=== PATIENT | female | born 2000 | race Caucasian/White ===

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

== ENCOUNTER 2022-01-01 15:58 | Emergency (ER) | payer OTHER, SELFPAY ==
[2022-01-01 16:12] VITALS: BP 158/91; PULSE 85; RESP 18; TEMP 37.1; O2SAT 100
--- NOTE | 2022-01-01 16:31 | ED.SKABFB ---
HPI - Skin/Abscess/Foreign Bdy General Chief complaint: Skin/Abscess/Foreign Body <Rabia Castle PA-C - Last Filed: 01/01/22 19:05> Stated complaint: spider bite <Rabia Castle PA-C - Last Filed: 01/01/22 19:05> Time Seen by Provider: 01/01/22 16:11 <Rabia Castle PA-C - Last Filed: 01/01/22 19:05> Source: patient <Rabia Castle PA-C - Last Filed: 01/01/22 19:05> Mode of arrival: ambulatory <Rabia Castle PA-C - Last Filed: 01/01/22 19:05> Limitations: no limitations <Rabia Castle PA-C - Last Filed: 01/01/22 19:05> History of Present Illness HPI narrative: This is a 21 year old female that presents to the ER for an area of redness and swelling to the left forearm. Reports drainage from the area. Denies fevers. <Rabia Castle PA-C - Last Filed: 01/01/22 19:05> Related Data Home medications: Home Medications Medication Instructions Recorded Confirmed omeprazole 10/23/21 10/23/21 <Rabia Castle PA-C - Last Filed: 01/01/22 19:05> Allergies/Adverse reactions: Allergies Allergy/AdvReac Type Severity Reaction Status Date / Time Penicillins Allergy Swelling Verified 10/23/21 19:06 <SUSSY Dixon Last Filed: 01/01/22 19:05> Review of Systems Review of Systems: CONSTITUTIONAL: Denies fever SKIN: Reports redness and swelling <Rabia Castle PA-C - Last Filed: 01/01/22 19:05> All systems reviewed & are unremarkable except as noted in HPI and below <Rabia Castle PA-C - Last Filed: 01/01/22 19:05> PMFSH Past Medical History Medical History: Medical History (Updated 01/01/22 @ 19:03 by Rabia Castle PA-C) Patient denies significant medical history <Rabia Castle PA-C - Last Filed: 01/01/22 19:05> Social History Social History: Social History (Updated 10/23/21 @ 21:37 by Bear Mcdonald MD) Smoking status: Never smoker Alcohol intake: never Substance use: never <Rabia Castle PA-C - Last Filed: 01/01/22 19:05> Exam Narrative: GENERAL: Well-appearing, well-nourished, and in no acute distress. HEAD: Normocephalic, atraumatic. EYES: EOMI. EXTREMITIES: Normal range of motion. 2cm area of erythema and induration to the left forearm. No active drainage. No lymphangitic streaking SKIN: Warm, dry, no rash. NEURO: No focal deficits. Alert and oriented x3. PSYCH: Normal mood and affect <Rabia Castle PA-C - Last Filed: 01/01/22 19:05> Course EXECUTIVE OFFICE MANAGER/PA Physician Supervision I did not see this patient nor was the care plan discussed with me. I was available for evaluation and consultation, I agree with the documentation <Bear Mcdonald MD - Last Filed: 01/01/22 19:18> Vital Signs Vital signs: Vital Signs Temperature 37.1 C 01/01/22 16:12 Pulse Rate 85 01/01/22 16:12 Respiratory Rate 18 01/01/22 16:12 Blood Pressure 158/91 H 01/01/22 16:12 Pulse Oximetry 100 01/01/22 16:12 Temperature 37.1 C 01/01/22 16:12 Pulse Rate 85 01/01/22 16:12 Respiratory Rate 18 01/01/22 16:12 Blood Pressure 158/91 H 01/01/22 16:12 Pulse Oximetry 100 01/01/22 16:12 <Rabia Castle PA-C - Last Filed: 01/01/22 19:05> Vital Signs Temperature 37.1 C 01/01/22 16:12 Pulse Rate 85 01/01/22 16:12 Respiratory Rate 18 01/01/22 16:12 Blood Pressure 158/91 H 01/01/22 16:12 Pulse Oximetry 100 01/01/22 16:12 Temperature 37.1 C 01/01/22 16:12 Pulse Rate 85 01/01/22 16:12 Respiratory Rate 18 01/01/22 16:12 Blood Pressure 158/91 H 01/01/22 16:12 Pulse Oximetry 100 01/01/22 16:12 <Bear Mcdonald MD - Last Filed: 01/01/22 19:18> Procedures Abscess I/D upper extremity: Date of Incision: 01/01/22 <Rabia Castle PA-C - Last Filed: 01/01/22 19:05> Side (if applicable): left <Rabia Castle PA-C - Last Filed: 01/01/22 19:05> Local Anesthetic: lidocaine 1% and with epi <Rabia Banerjee
[2022-01-01 19:18] VITALS: BP 134/87; PULSE 80; RESP 15; O2SAT 99
== END 2022-01-01 19:20 | disposition home or self-care (01) ==
PROVIDERS: Emergency Provider Emergency Medicine
DX: L02.414 Cutaneous abscess of left upper limb (principal)
CPT/HCPCS: 10160; 81025; 99284

== ENCOUNTER 2022-02-12 16:01 | Emergency (ER) | payer OTHER, SELFPAY ==
--- NOTE | ~2022-02-12 | XR_ITS ---
XR chest 2V DATE: 02/12/2022 17:26 INDICATION: Midsternal chest pain, shortness of breath, lightheadedness and dizziness today. TECHNIQUE: AP and lateral views COMPARISON: 10/23/2021 PA chest FINDINGS: Normal heart size. No hilar or mediastinal enlargement. No pulmonary infiltrate or consolid ation, pleural effusion or pulmonary vascular congestion or pneumothorax. IMPRESSION: No active cardiopulmonary disease Reviewed, dictated and finalized at location A.
[2022-02-12 16:04] VITALS: BP 114/72; PULSE 83; RESP 20; TEMP 36.7; O2SAT 100
--- NOTE | 2022-02-12 16:12 | ECG_ITS ---
Measurements Intervals [place] Rate: 77 P: 42 FL: 152 QRS: 57 QRSD: 90 T: 18 QT: 374 QTc: 424 Interpretive Statements SINUS RHYTHM NORMAL ECG COMPARED TO ECG 10/23/2021 19:23:01 NO SIGNIFICANT CHANGES Electronically Signed On 02-13-2022 12:29:17 CDT by Sean Interiano M.D.
--- NOTE | 2022-02-12 16:53 | PC.NURSE ---
pt. glucose was 95 at 1652
[2022-02-12 16:55] LABS: Glucose Point of Care 95 mg/dl (65-105)
--- NOTE | 2022-02-12 17:02 | ED.GENADULT ---
HPI - General Adult General Chief complaint: Unspecified Stated complaint: POSSIBLE SEIZURE Time Seen by Provider: 02/12/22 16:05 Source: patient Mode of arrival: EMS Limitations: no limitations History of Present Illness HPI narrative: 21-year-old female presents today via EMS with concerns for syncopal episode. Patient states she noticed some dizziness today noticed some chest pain that went down her arm. Patient seen her in the past for similar symptoms. Per patient after her chest pain is when she had the syncopal episode at work. Per her coworkers she was in and out of consciousness for 1 to 2 minutes and then completely lost consciousness for 2 minutes. Coworker states that they were unable to arouse her with a sternal rub, she was dry heaving, no abnormal limb movement. No urinary incontinence, no fecal incontinence, no noted seizure activity. By the time EMS arrived patient was awake and alert. Patient does have a medical history of seizures but has not taken meds for years. Related Data Home Medications Medication Instructions Recorded Confirmed omeprazole 10/23/21 10/23/21 Allergies Allergy/AdvReac Type Severity Reaction Status Date / Time Penicillins Allergy Swelling Verified 02/12/22 16:10 sulfamethoxazole Allergy Swelling Verified 02/12/22 16:10 [From Bactrim] trimethoprim [From Bactrim] Allergy Swelling Verified 02/12/22 16:10 Review of Systems Review of Systems: CONSTITUTIONAL: Denies fever, chills, or sweats. EYES: Denies visual changes, redness, or discharge. ENT: Denies rhinorrhea, congestion, sore throat, or otalgia. CARDIOVASCULAR: Sharp chest pain with radiation down the arm prior to syncopal episode. Denies palpitations, or edema. RESPIRATORY: Denies cough or dyspnea. GASTROINTESTINAL: Denies abdominal pain, nausea, vomiting, or diarrhea. GENITOURINARY: Denies dysuria or hematuria. SKIN: Denies rash or itching. MUSCULOSKELETAL: Denies back pain, joint pain, or myalgia. NEUROLOGIC: Dizziness and LOC. Denies numbness or weakness. PSYCHIATRIC: Denies anxiety or depression. [facility] Past Medical History Medical History Patient denies significant medical history Social History Social History Smoking status: Never smoker Alcohol intake: never Substance use: never Exam Narrative: GENERAL: Well-appearing, well-nourished, and in no acute distress. HEAD: Normocephalic, atraumatic. EYES: PERRLA and EOMI. ENT: Nares clear, no rhinorrhea or epistaxis. Mucous membranes moist. Oropharynx without tonsillar hypertrophy exudate or other lesions. Bilateral TMs pearly gottlieb nonbulging NECK: Supple. No adenopathy or masses. No carotid bruits or JVD CHEST: Clear to auscultation. No respiratory distress. No wheezes rales or rhonchi. Chest pain with palpation. HEART: Regular rate and rhythm. No murmur heard. Normal peripheral pulses. ABDOMEN: Soft, nontender, nondistended, normal active bowel sounds. EXTREMITIES: Normal range of motion. No edema. SKIN: Warm, dry, no rash. NEURO: No focal deficits. Alert and oriented x3. PSYCH: Flat affect. Normal mood. Course Course Emergency Course: PERC Rule for Pulmonary Embolism from [email or web address] on 02/12/2022 All calculations should be rechecked by clinician prior to use RESULT SUMMARY: 0 criteria No need for further workup, as <2% chance of PE. If no criteria are positive and clinician?s pre-test probability is <15%, PERC Rule criteria are satisfied. INPUTS: Age ?50 ?> 0 = No HR ?100 ?> 0 = No O? sat on room air ?> 0 = No Unilateral leg swelling ?> 0 = No Hemoptysis ?> 0 = No Recent surgery or trauma ?> 0 = No Prior PE or DVT ?> 0 = No Hormone use ?> 0 = No Patient currently without dizziness no chest pain. Feeling better and ready for discharge. Will finish IVF prior to discharge. Vital Signs Vital signs: Vital Signs
[2022-02-12 17:09] LABS: Basophils Absolute Auto 0.1 K/mm3 (0.0-0.1); Basophils Percent Auto 0.5 % (0.2-1.2); Eosinophils Absolute Auto 0.1 K/mm3 (0-0.3); Eosinophils Percent Auto 0.7 % (0-4.4); Hemoglobin 12.7 g/dL (12.0-15.0); Immature Granulocyte Absolute 0.05 K/mm3 (0.00-0.031); Immature Granulocyte Percent A 0.5 % (0-0.5); Lymphocytes Absolute Auto 2.34 K/mm3 (0.9-3.2); Lymphocytes Percent Auto 21.1 % (18.3-44.2); Mean Corpuscular HGB Conc 31.8 g/dl (32-36); Mean Corpuscular Hemoglobin 28.7 pg (26-34); Mean Corpuscular Volume 90.3 fl (80-100); Mean Platelet Volume 9.8 fl (7.4-10.4); Monocytes Absolute Auto 0.7 K/mm3 (0.1-0.6); Monocytes Percent Auto 6.6 % (2.6-8.5); Neutrophils Absolute Auto 7.8 K/mm3 (1.3-6.7); Neutrophils Percent Auto 70.6 % (45.5-73.1); Platelet Count Result 268 k/mm3 (150-375); Red Blood Count 4.43 M/mm3 (4.2-5.4); Red Cell Distribution Width 13.7 % (11.5-14.5); White Blood Count 11.1 K/mm3 (4.5-10.0)
[2022-02-12] MEDS: SODIUM CHLORIDE 0.9% IV 1,000 ML 999 ML IV CONT (17:09)
[2022-02-12 17:15] LABS: Add Urine Microscopic? YES; Appearance Urine Cloudy (Clear); Bacteria Urine Trace /hpf; Bilirubin Urine Negative (Negative); Blood Urine Negative (Negative); Color Urine Yellow (Yellow); Glucose Urine UA Negative (Negative); Ketones Urine Negative (Negative); Leukocyte Esterase Ur Negative LEU/UL (Negative); Mucus Urine Rare /lpf; Nitrate Urine Negative (Negative); Protein Urine Negative (Negative); Specific Grav Ur 1.021 (1.001-1.035); Squamous Epithelial Cell Urine Moderate /hpf (Few); Urobilinogen Urine Negative mg/dL (<2.0); WBC Urine 0-3 /hpf
[2022-02-12 17:16] LABS: Alanine Aminotransferase 19 U/L (4-35); Albumin Level 4.2 g/dL (3.7-5.6); Alkaline Phosphatase 75 U/L (45-116); Anion Gap 5 mmol/L (8-16); Aspartate Amino Transferase 30 U/L (14-36); Bilirubin,Total 0.2 mg/dL (0.2-1.3); Blood Urea Nitrogen 11 mg/dL (8-21); Calcium 8.7 mg/dL (8.9-10.7); Carbon Dioxide 32 mmol/L (22-30); Chloride 103 mmol/L (98-107); Estimated CRCL calculation 183 ml/min; Estimated Glomerular Filt Rate > 60; Glucose 84 mg/dL (65-110); Potassium 3.7 mmol/L (3.4-5.0); Sodium 140 mmol/L (134-143)
[2022-02-12 17:28] LABS: Troponin I < 0.012 ng/mL (0.000-0.034)
[2022-02-12 17:41] VITALS: BP 118/62; PULSE 70
[2022-02-12 17:42] VITALS: BP 114/75; PULSE 77
[2022-02-12 17:43] VITALS: BP 127/76; PULSE 89
[2022-02-12 18:30] VITALS: BP 115/80; PULSE 72; RESP 20; O2SAT 100
== END 2022-02-12 18:40 | disposition home or self-care (01) ==
PROVIDERS: Emergency Provider Nurse Practitioner Family
DX: R55 Syncope and collapse (principal)
CPT/HCPCS: 36415; 71046; 80053; 81001; 81025; 82948; 84484; 85025; 93005; 96360; 99284; J7030

== ENCOUNTER 2022-02-14 13:59 | Emergency (ER) | payer OTHER, SELFPAY ==
[2022-02-14 14:21] VITALS: BP 137/82; PULSE 91; RESP 16; TEMP 36.6; O2SAT 100
--- NOTE | 2022-02-14 14:23 | PC.NURSE ---
pt amb in lobby with steady gait.
--- NOTE | 2022-02-14 15:27 | PC.NURSE ---
pt to intake desk stating I'm just gonna go to [place] . pt amb with steady gait out of building.
== END 2022-02-14 15:34 | disposition left against medical advice (07) ==
LOC: ANHED 15:31
DX: R42 Dizziness and giddiness (principal)
CPT/HCPCS: 99199

== ENCOUNTER 2022-06-11 21:06 | Emergency (ER) | payer MEDICAID, SELFPAY ==
[2022-06-11 21:08] VITALS: BP 128/81; PULSE 114; RESP 16; TEMP 36.3; O2SAT 100
--- NOTE | 2022-06-11 21:39 | PC.NURSE ---
heart tones found in left medial quadrant, 180 BPM.
--- NOTE | 2022-06-11 21:42 | ED.PREGNANCY ---
HPI - General Chief complaint: Vaginal Bleeding Stated complaint: 18 WEEKS / BLEEDING Time Seen by Provider: 06/11/22 21:22 History of Present Illness HPI Narrative: Patient is a 21-year-old G2, P0 female who is currently 19 weeks here for evaluation of vaginal spotting today and yesterday. Patient states that she has had 3 episodes of light pink spotting noted in her underwear. Today, she notes lower abdominal cramping which prompted her ED evaluation. She has not taken any medication for his pain. Denies lightheadedness, syncope, leg swelling. She follows at [facility] for her , has had an ultrasound that confirmed IUP. Related Data Home Medications Medication Instructions Recorded Confirmed No Home Medications 06/11/22 Allergies Allergy/AdvReac Type Severity Reaction Status Date / Time Penicillins Allergy Swelling Verified 06/11/22 21:06 sulfamethoxazole Allergy Swelling Verified 06/11/22 21:06 [From Bactrim] trimethoprim [From Bactrim] Allergy Swelling Verified 06/11/22 21:06 Review of Systems Review of Systems: Gen.: Denies fevers or chills Eyes: Denies eye pain or visual change ENT: Denies congestion Respiratory: Denies shortness of breath or cough CV: Denies chest pain or palpitations GI: Reports abdominal pain : Reports vaginal bleeding. Denies burning, urgency, frequency or hematuria Musculoskeletal: Denies back pain or muscle pain Neuro: Denies numbness, tingling, weakness or focal weakness Skin: Denies rash Except as documented, all other systems reviewed and negative PMFSH Past Medical History Medical History Patient denies significant medical history Social History Social History Smoking status: Never smoker Alcohol intake: never Substance use: never Course Course Emergency Course: Bedside POC US with positive movement, heart rate detected on doppler US as well Vital Signs Vital signs: Vital Signs Temperature 97.3 F L 06/11/22 21:08 Pulse Rate 114 H 06/11/22 21:08 Respiratory Rate 16 06/11/22 21:08 Blood Pressure 128/81 06/11/22 21:08 Pulse Oximetry 100 06/11/22 21:08 Temperature 97.3 F L 06/11/22 21:08 Pulse Rate 100 06/11/22 21:49 Respiratory Rate 16 06/11/22 21:08 Blood Pressure 144/81 H 06/11/22 21:49 Pulse Oximetry 100 06/11/22 21:08 MDM - OB/Uterine Contractions MDM Narrative Medical decision making narrative: 21-year-old female who is currently 19 weeks here for evaluation of vaginal spotting for the past 2 days with some lower abdominal cramping. Patient had detectable Doppler heart tones, bedside ultrasound with positive movement. [place] [id number]. She is O+, no need to give RhoGAM. Prior to obtaining pelvic exam, patient informed me that she contacted her OB at [facility] and would like to go there. Patient insisting that IV removed so she can go immediately to [facility]. Discussed that I was planning on contacting her OB regardless, encouraged her to stay for pelvic exam and complete examination, but patient adamant that she wants to leave and go to [facility]. She signed AMA paperwork. Lab Data Result diagrams: 06/11/22 21:41 Labs: Lab Results 06/11/22 06/11/22 06/11/22 Range/Units 21:41 21:41 21:41 WBC 13.2 H (4.5-10.0) K/mm3 RBC 3.97 L (4.2-5.4) M/mm3 Hgb 11.3 L (12.0-15.0) g/dL Hct 34.4 L (37.0-47.0) % MCV 86.6 (80-100) fl MCH 28.5 (26-34) pg MCHC 32.8 (32-36) g/dl RDW 13.1 (11.5-14.5) % Plt Count 235 (150-375) k/mm3 MPV 10.3 (7.4-10.4) fl Immature Gran % (Auto) 0.8 H (0-0.5) % Neut % (Auto) 78.2 H (45.5-73.1) % Lymph % (Auto) 14.9 L (18.3-44.2) % [place] % (Auto) 5.1 (2.6-8.5) % Eos % (Auto) 0.8 (0-4.4) % Baso % (A
[2022-06-11 21:46] VITALS: BP 123/59; PULSE 82
[2022-06-11 21:47] VITALS: BP 132/79; PULSE 97
[2022-06-11 21:49] VITALS: BP 144/81; PULSE 100
[2022-06-11 21:51] LABS: Basophils Percent Auto 0.2 % (0.2-1.2); Eosinophils Absolute Auto 0.1 K/mm3 (0-0.3); Eosinophils Percent Auto 0.8 % (0-4.4); Hematocrit 34.4 % (37.0-47.0); Hemoglobin 11.3 g/dL (12.0-15.0); Immature Granulocyte Percent A 0.8 % (0-0.5); Lymphocytes Absolute Auto 1.97 K/mm3 (0.9-3.2); Lymphocytes Percent Auto 14.9 % (18.3-44.2); Mean Corpuscular HGB Conc 32.8 g/dl (32-36); Mean Corpuscular Hemoglobin 28.5 pg (26-34); Mean Corpuscular Volume 86.6 fl (80-100); Mean Platelet Volume 10.3 fl (7.4-10.4); Monocytes Absolute Auto 0.7 K/mm3 (0.1-0.6); Monocytes Percent Auto 5.1 % (2.6-8.5); Neutrophils Absolute Auto 10.3 K/mm3 (1.3-6.7); Neutrophils Percent Auto 78.2 % (45.5-73.1); Platelet Count Result 235 k/mm3 (150-375); Red Blood Count 3.97 M/mm3 (4.2-5.4); Red Cell Distribution Width 13.1 % (11.5-14.5); White Blood Count 13.2 K/mm3 (4.5-10.0)
[2022-06-11] MEDS: ACETAMINOPHEN 325 MG TABLET 650 MG PO (21:59)
== END 2022-06-11 23:15 | disposition left against medical advice (07) ==
PROVIDERS: Emergency Provider Emergency Medicine
DX: O20.9 Hemorrhage in early pregnancy, unspecified (principal); Z3A.19 19 weeks gestation of pregnancy
CPT/HCPCS: 36415; 84702; 85025; 85461; 99284; A9270

== ENCOUNTER 2025-09-15 17:44 | Outpatient (CLI) | payer OTHER, SELFPAY ==
[2025-09-15 18:07] VITALS: BP 128/72; PULSE 100
[2025-09-15 18:11] VITALS: BMI 56.1
--- NOTE | 2025-09-15 18:11 | PC.NURSE ---
Dr Kemp notified of fall, gestational age of 18 weeks. Doppler of FHT's of 160's. Ok to dc home with precautions. Patient feels reassured and sees Dr Kemp next week.
--- OUTSIDE RECORDS SUMMARY | 2025-09-15 19:11 | XMS_ITS | Clinical Summary ---
Author Organization [facility] Address [address] [place] [address] Phone Care Team Providers Care Hand Edger Name Role Phone Donnie Tejeda Primary Care Provider [phone] Ishaan Leija MD Unavailable [phone] Allergies Active Allergy Reactions Criticality Noted Date Comments Sulfamethoxazole-Trimethoprim Anaphylaxis 07/30 Penicillins Rash 10/12/2017 Promethazine Other (see Comments) High 03/27/2022 Sulfamethoxazole Other (see Comments) Trimethoprim Other (see Comments) 11/13/2024 Medications Adderall 20 MG Tablet Take 1 Tablet by mouth. 05/12/2025 Active ferrous sulfate 325 (65 Fe) MG Tablet Take 1 Tablet by mouth daily. 30 Tablet 2 06/17/2025 Active Active Problems Problem Noted Date Diagnosed Date Iron deficiency anemia due to chronic blood loss 05/19/2025 Iron deficiency anemia, unspecified 05/19/2025 Encounters Date Type Department Care Team Description 06/17/2025 Travel 06/16/2025 Telephone [facility] [address] [address] Ishaan Leija MD canopy call/iron infusion question from Last 3 Months Social History Tobacco Use Types Packs/Day Years Used Date Smoking Tobacco: Never Smokeless Tobacco: Never Tobacco Cessation:Counseling Given: Not Answered Alcohol Use Standard Drinks/Week Comments Yes 0 (1 standard drink = 0.6 oz pur e alcohol) once in a while Comments Unknown Sex and Gender Information Value Date Recorded Sex Assigned at Not on file Legal Sex Female 1:32 PM [employer] Gender Identity Female 04/08/2025 12:22 AM CDT Sexual Orientation Straight 04/08/2025 12 :22 AM CDT Last Filed Vital Signs Vital Sign Reading Time Taken Comments Blood Pressure 122/78 05/19/2025 2:24 PM CDT Pulse 92 05/19/2025 2:24 PM CDT Temperature 36.7 C (98 F) 05/19/2025 2:24 PM CDT Respiratory Rate 20 05/19/2025 2:24 PM CDT Oxygen Saturation 99% 05/19/2025 2:24 PM CDT Inhaled Oxygen Concentration - - Weight 149.7 kg (330 lb 1.6 oz) 05/19/2025 2:24 PM CDT Height 165.1 cm (5' 5) 05/19/2025 2:24 PM CDT Body Mass Index 54.93 05/19/2025 2:24 PM CDT Plan of Treatment Health Maintenance Due Date Last Done Comments Meningococcal B Immunization (2 of 2 - Bexsero SCDM 2-dose series) 10/07/2021 04/06/2021 Pap Smear 2023 Influenza Immunization (#1) 2025 08/28/2016, 1 01/07/2006 SARS-COV-2 Immunization ( - season) 2025 Respiratory Syncytial Virus (RSV) Immunization (Adult) (1 - 1-dose 75+ series) 2077 Hepatitis B Immunization Completed 003, 02/24/2003, 2002 Pneumococcal Immunization Combined Aged Out 12/25/2004, 06/27/2003, 04/28/2003, Additional history exists No longer eligible based on patient's age to complete this topic Polio (IPV) Immunization Discontinued 007, 07/16/2004, 04/28/2003, Additional history exists Hepatitis A Immunization Discontinued 014, 2005, 12/25/2004 Hepatitis C Virus (HCV) Screening Completed 08/08/2017 Human Papillomavirus (HPV) Immunization Completed 08/15/2017, 09/15/2014, 07/12/2014 Meningococcal Immunization (ACWY) Completed 04/06/2021, 07/12/2014 DTaP/Tdap/Td Immunization Discontinued 2024, 09/05/2022, 07/12/2014, Additional history exists TdaP Immunization Completed 12/06/2024, , 07/12/2014 Varicella Immunization Discontinued , 01/10/2008, 01/02/2004 Measles Mumps Rubella (MMR) Immunization Discontinued 02/12/2025, 01/10/2008, 03/26/2004 Rotavirus Immunization Aged Out No lo nger eligible based on patient's age to complete this topic Insurance [address], [place] [id number] [address] [place] [address] [address] [place] [address] [facility] Care Teams Hand Edger Relationship Specialty Start Date End Date Donnie Tejeda [address] [address] PCP - General Family Medicine 04/07/25 Ishaan Leija MD [address] [place] [address] Consulting Physician Oncology 05/14/25
--- OUTSIDE RECORDS SUMMARY | 2025-09-15 19:12 | XMS_ITS | Clinical Summary ---
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 Recorded Do you feel stress - tense, restless, nervous, or anxious, or unable to sleep at night because your mind is troubled all the time - these days? Not at all 11/21/2024 Exercise Vital Sign Answer Date Recorde d On average, how many days pe r week do you engage in moderate to strenuous exercise (like a brisk walk)? 0 days 11/21/2024 On average, how many minutes do you engage in exercise at this level? 0 min 11/21/2024 Hunger Vital Sign Answer Date Recorded Within the past 12 months, y ou worried that your food would run out before you got the money to buy more. Never true 03/04/20 25 Within the past 12 months, t he food you bought just didn't last and you didn't have money to get more. Never true 03/04/2025 PRAPARE - Transportation Answer Date Re corded In the past 12 months, has l ack of transportation kept you from medical appointments or from getting medications? No 01/25 In the past 12 months, has l ack of transportation kept you from meetings, work, or from getting things needed for daily living? No 02/11/2025 Housing Stability Vital Sign Answer Arsh e Recorded In the last 12 months, was t here a time when you were not able to pay the mortgage or rent on time? No 11/05/2022 In the last 12 months, how many places have you lived? 1 11/05/2022 In the last 12 months, was t here a time when you did not have a steady place to sleep or slept in a correction (including now)? No 11/05/2022 [place] Depression Scale Answer Date Recorded [place] Depression Scale Total 13 04/03/2025 The thought of harming myself has occurred to me . Never 04/03/2025 PHQ-9 Answer Date Recorded PHQ-9 Total Score 0 11/27/2024 Housing Stability Vital Sign Answer Arsh e Recorded In the last 12 months, was t here a time when you were not able to pay the mortgage or rent on time? No 02/11/2025 In the past 12 months, how m any times have you moved where you were living? 0 02/11/2025 At any time in the past 12 m [facility], were you homeless or living in a correction (including now)? No 02/11/2025 Personal Safety Answer Date Recorded Have you ever been in or are you currently in a harmful physical or emotional relationship or is someone making you feel afraid or unsafe? Denies 08/11/2025 Education Answer Date Recorded What is the highest level of school you have completed or the highest degree you have received? High school graduate 06/21/2024 Estimated Date of Delivery Comme nts Yes 02/16/2026 Based on Ultraso und Sex and Gender Information Value Date Recorded Sex Assigned at Not on file Legal Sex Female 7:42 PM QA SOFTWARE TESTER Gender Identity Female 01/04/2025 4:15 AM QA SOFTWARE TESTER Sexual Orientation Straight 08/04/2022 2: 40 PM CDT Occupation Industry Job Start Date Job End Date unemployed Not on file Not on file Not on file Obstetrics History Para Term AB IAB SAB Ectopic Multiple Livin g Live Births 6 2 2 3 0 3 0 2 2 Date Outcome GA Total Labor Labor/2nd/3rd Weight Sex Type Anes PTL Adelita A1 A5 Name Clin 2016 SAB SAB 2020 SAB 2021 Term 38w 5d 0h 02m 0h 02m 2.68 kg (5 lb 14.5 oz) F C-Sec tion Epidur al N Livin g 6 9 SPRATL EY,GIR SARA Adorno , Breanna shah MD Complications:Failure to Pro alvarez in First Stage Delivery Location:[facility] Main C ampus ([facility] L AND D PROCEDURE) 06/202 3 SAB SAB 2024 Term 38w 1d 0h 01m 0h 01m 2.88 kg (6 lb 5.6 oz) F C-Sec tion Combin ed Spinal /Epidu ral N Livin g 7 8 Linusbethaniemichael erum bills, Paul Xavier MD Delivery Location:[facility] Main C ampus ([facility] L AND D PROCEDURE) Current Summary Episode Dates Number of Fetuses Estimated Date of Delivery 06/23/2025 - Present (09/15/2025) 02/16/2026 (set by Aparna Vega NP on 06/23/2025 based on Ultrasound on 06/23/2025) Dating Summary Based On AMANDA GA Diff Last Menstrual Period on 04/29/2025 (Approximate ) 02/03/2026 +1w6d Ultrasound on 06/23/2025 02/16/2026 Working GA:6w0d Vitals Pregravid Weight Height TWG (As of 09/15/2025) Pregrav id BMI 165.1 cm (5' 5) Date GA Fund Present FHR Mvmt BP Weight Edema Alb Glu Ket Dil/ Eff/Sta 5 6w0d Inpatient data not displayed here. See encounter summary. 5 13w0d Inpatient data not displayed here. See encounter summary. Notes Progress Notes - Hospital En counter - 06/23/2025 - GA:6w0d 06/23/2025 - 6w0d - Aparna Dowling, RN Pt is a 24yo @ 7.6 presents to the [facility] with c/o generalized weakness, dizziness, CP and generalized body. Body pain is currently 8/10, increases with movement. Pt states when she gets weak, she becomes dizzy, has CP, and see floaty things. Orthostatic: After lying 5 min: HR 88 BP 112/55 High Fowlers 1 min: HR 88 BP 137/80 High Fowlers 3 min: HR 91 BP 137/79 Pt reports she was told she had low iron, and was supposed to have an iron infusion, but when she arrived the Dr told her she could not have the infusion at this time. Last Filed Vital Signs Vital Sign Reading Time Taken Comments Blood Pressure 145/78 08/11/2025 3:30 PM CDT Pulse 113 08/11/2025 3:30 PM CDT Temperature 36.5 C (97.7 F) 08/11/2025 3:30 PM CDT Respiratory Rate 18 08/11/2025 3:30 PM CDT Oxygen Saturation 98% 08/11/2025 3:30 PM CDT Inhaled Oxygen Concentration - - Weight 153.3 kg (338 lb) 08/11/2025 3:30 PM CDT Height 165.1 cm (5' 5) 08/11/2025 3:30 PM CDT Body Mass Index 56.25 08/11/2025 3:30 PM CDT Plan of Treatment Upcoming Encounters Date Type Department Care Team (Late st Contact Info) Description 02/16/2026 Hospital Encounter [facility] [address] [place] [address] Paul Villalba MD [address] [facility] [phone] [place] [address] Health Maintenance Due Date Last Done Comments Meningococcal B Vaccine (2 o f 2 - Bexsero SCDM 2-dose series) 10/07/2021 04/06/2021 Cervical Cancer Screening 02/21/2025 02/22/2024 Regular Well Visit/Exam 18-64 02/21/2025 02/22/2024 Influenza Vaccine (#1) 2025 6, 09/08/2009, 09/29/2008, Additional history exists Depression Screening 04/03/2026 04/03/2025, 11/21/2024, 11/21/2024, Additional history exists Chlamydia and Gonorrhea (GC/ CT) Screening 07/06/2026 07/06/2025, 07/08/2024, 06/21/2024, Additional history exists DTaP/Tdap/Td Vaccine (9 - Td or Tdap) 12/06/2034 12/06/2024, 09/05/2022, 07/12/2014, Additional history exists Hepatitis B Screening Completed 10/03/2003 , 02/24/2003, 2002 Pneumococcal vaccine <65 Completed 005, 06/27/2003, 04/28/2003, Additional history exists HPV Vaccines Completed 08/15/2017, 08/28, 07/12/2014 Hepatitis C Screening Completed 06/21/2024, 022 Varicella Vaccines Completed 02/11/2025, 0 01/10/2008, 01/02/2004 Procedures Procedure Name Priority Date/Time Associated Diagnosis Comments POCT GLUCOSE DEVICE Routine 08/11/2025 5 :07 PM CDT ECG 12-LEAD STAT 08/11/2025 4:39 PM CDT POCT URINALYSIS (CLINITEK) Routine 08/11/2025 3:58 PM CDT POCT URINALYSIS (CLINITEK) Routine 08/11/2025 3:53 PM CDT URINALYSIS, MICROSCOPIC ONLY STAT 07/06/2025 6:37 PM CDT HCG, URINE, QUALITATIVE STAT 07/06/2025 6:37 PM CDT VAGINITIS PANEL Routine 07/06/2025 6:37 PM CDT N. GONORRHOEAE/C. TRACHOMATIS AMPLIFICATION STAT 07/06/2025 6:37 PM CDT URINALYSIS AND REFLEX TO MICROSCOPIC AND CULTURE STAT 07/06/2025 6:37 PM CDT POCT URINALYSIS (CLINITEK) Routine 06/23/2025 6:33 PM CDT POCT HEMOGLOBIN Routine 06/23/2025 5:55 PM CDT POCT GLUCOSE DEVICE Routine 06/23/2025 5 :54 PM CDT POCT HCG, URINE Routine 06/23/2025 4:35 PM CDT HEPATITIS C ANTIBODY Routine 06/21/2024 9:08 AM CDT care in first trimester PAP ONLY Routine 02/22/2024 8:43 AM CDT Well woman exam from Last 3 Months or Most Recently Relevant to Health Maintenance Results * POCT glucose (08/11/2025 5:07 PM CDT) Glucose, POC 106 70 - 199 mg/dL Blood 08/11/2025 5:07 PM CDT 08/11/2025 5:07 PM CDT us Paul Villalba MD LAB POCT ORDERABLES - DEVIC E Final Result Performing Organization Address City/State/[facility] Co de Phone Number [facility] Department [place] [address] * ECG 12 lead (08/11/2025 4:39 PM CDT) Ventricular Rate EKG/Min 97 BPM [facility] Atrial Rate 97 BPM [facility] OK-Interval (MSEC) 132 ms [facility] QRS-Interval (MSEC) 84 ms [facility] QT-Interval (MSEC) 352 ms [facility] QTc 447 ms [facility] P [place] 44 degrees [facility] R [place] 39 degrees [facility] T [place] 11 degrees [facility] Diagnosis Normal sinus rhythm Normal ECG When compared with ECG of 06-NOV-2024 12:11, QRS axis Shifted left Confirmed by DYLAN BAEZ M.D ([id number]) on 08/12/2025 10:28:51 AM [facility] 08/11/2025 4:39 PM CDT 08/12/2025 10:28 AM CDT us Aparna Gonzales NP ECG ORDERABLES Fi nal Result Performing Organization Address City/[facility] de Phone Number [facility] * POCT urinalysis (Clinitek) (08/11/2025 3:58 PM CDT) Color, ur, POC Yellow Yellow Clarity, UA, POC Clear Clear [facility] Glucose, ur, POC Negative Negative [facility] Bilirubin, ur, POC Negative Negative [facility] Ketones, ur, POC Negative Negative [facility] Specific gravity, ur, POC 1.025 1.010 - 1.025 [facility] Blood, ur, POC Negative Negative [facility] pH, ur, POC 6.5 [facility] Comment: Interpretive Data Urine pH is affected by diet, medications, systemic acid-base disturbances, and renal tubular function. pH may affect urinary stone formation. For example, urine pH below 6.0 may help reduce the tendency for calcium phosphate stones and pH greater than 6.0 may reduce the tendency for uric acid stone formation. Source: [employer] Last Revised Date: 12-07-2017 Protein, ur, POC Negative Negative [facility] Urobilinogen, ur, POC 0.2 mg/dL mg/dL [facility] Nitrites, ur, POC Negative Negative [facility] Leukocyte esterase, ur, POC Negative Negative [facility] Urine 08/11/2025 3:58 PM CDT 08/11/2025 3:58 PM CDT us Paul Villalba MD LAB POCT ORDERABLES - DEVIC E Final Result Performing Organization Address [facility] Co de Phone Number [facility] One [facility] Department [place] [address] * (ABNORMAL) POCT urinalysis (Clinitek) (08/11/2025 3:53 PM CDT) Color, ur, POC Yellow Yellow Clarity, UA, POC Clear Clear [facility] Glucose, ur, POC Negative Negative [facility] Bilirubin, ur, POC Negative Negative [facility] Ketones, ur, POC Negative Negative [facility] Specific gravity, ur, POC >=1.030(A) 1.010 - 1.025 [facility] Blood, ur, POC Negative Negative [facility] pH, ur, POC 6.5 [facility] Comment: Interpretive Data Urine pH is affected by diet, medications, systemic acid-base disturbances, and renal tubular function. pH may affect urinary stone formation. For example, urine pH below 6.0 may help reduce the tendency for calcium phosphate stones and pH greater than 6.0 may reduce the tendency for uric acid stone formation. Source: [facility] [employer]. Last Revised Date: 12-07-2017 Protein, ur, POC Negative Negative [facility] Urobilinogen, ur, POC 0.2 mg/dL mg/dL [facility] Nitrites, ur, POC Negative Negative [facility] Leukocyte esterase, ur, POC Negative Negative [facility] Urine 08/11/2025 3:53 PM CDT 08/11/2025 3:53 PM CDT Paul Villalba MD LAB POCT ORDERABLES - DEVIC E Final Result Performing Organization Address City/State/[facility] de Phone Number [facility] One [facility] Department [place] [address] * N. gonorrhoeae/C. trachomatis Amplification Urine (07/06/2025 6:37 PM CDT) C. trachomatis Not Detected Not Detected N. gonorrhoeae Not Detected Not Detected [facility] (JAMILA) Comment: Interpretive Data This assay detects Chlamydia trachomatis and Neisseria gonorrhoeae by nucleic acid amplification testing (NAAT). This assay has been cleared by the [place] Food and Drug administration. The performance characteristics of this test have been verified by the [facility]. The performance characteristics of this test have not been evaluated in individuals less than 14 years of age. Current Interpretive Data last revised 2024. Urine (None) 07/06/2025 6:37 PM CDT 07/06/2025 7:04 PM CDT Fe Gardner NP LAB MICROBIOLOGY - GENERAL OR DERABLES Final Result Performing Organization Address City/State/[facility] Co de Phone Number [facility] ALEXIS (JAMILA) 1 [facility] Department [place] [address] * (ABNORMAL) Vaginitis panel Vaginal (07/06/2025 6:37 PM CDT) Bacterial Vaginosis Not Detected Not Detected Comment: A negative result does not preclude a possible infection. Results should be considered in conjunction with clinical presentation to determine the disease status. Testing performed by: [facility], [address] [place] [address]., [id number] Mita group Detected(A) Not Detected [facility] ESPINO[facility] (JAMILA) Comment: Mita species can be present as commensal organisms in women; results should be considered in conjunction with clinical presentation to determine the disease status. Testing performed by: [facility], [address] [place] [address]., [id number] Mita glabrata/ krusei Not Detected Not Detected [facility] ESP[facility] (JAMILA) Comment:Testing performed by : [facility], [address] [place] [address]., [id number] Trichomonas DNA Not Detected Not Detected [facility] ESP[facility] (JAMILA) Comment:Testing performed by : [facility], [address] [place] [address]., [id number] Vaginal 07/06/2025 6:37 PM CDT 07/06/2025 8:48 PM CDT Narrative [facility] (JAMILA) - 07/06/2025 9:54 PM CDT The Cepheid Xpert Xpress MVP test detects DNA targets from anaerobic bacteria associated with bacterial vaginosis, Mita species associated with vulvovaginal candidiasis, and Trichomonas vaginalis by nucleic acid amplification testing (NAAT). Results should be interpreted in conjunction with other clinical data. This test cannot be used to assess therapeutic success or failure because target nucleic acids may persist following antimicrobial therapy. This test has been cleared by the [place] Food and Drug Administration to aid in the diagnosis of vaginal infections in symptomatic women ages 14 and older. The performance characteristics of this test have been verified by the [facility]. The Cepheid Xpert Xpress MVP test detects DNA targets from anaerobic bacteria associated with bacterial vaginosis, Mita species associated with vulvovaginal candidiasis, and Trichomonas vaginalis by nucleic acid amplification testing (NAAT). Results should be interpreted in conjunction with other clinical data. This test cannot be used to assess therapeutic success or failure because target nucleic acids may persist following antimicrobial therapy. This test has been cleared by the [place] Food and Drug Administration to aid in the diagnosis of vaginal infections in symptomatic women ages 14 and older. The performance characteristics of this test have been verified by the [facility]. us Fe Gardner NP LAB MICROBIOLOGY - GENERAL OR DERABLES Final Result [facility] (JAMILA) 1 [facility] Department [place] [address] [place] * (ABNORMAL) Urinalysis reflex to microscopic and culture Urine (07/06/2025 6:37 PM CDT) Color, ur Yellow Yellow Clarity, ur Turbid(A) Clear [facility] (JAMILA) Specific gravity, ur 1.025 1.003 - 1.030 [facility] (JAMILA) pH, urine 6.5 [facility] (JAMILA) Comment: Interpretive Data U rine pH is affected by diet, medications, systemic acid-base disturbances, and renal tubular function. pH may affect urinary stone formation. For example, urine pH below 6.0 may help reduce the tendency for calcium phosphate stones and pH greater than 6.0 may reduce the tendency for uric acid stone formation. Source: [facility] [employer] Current Interpretive Data was last revised on 2017 Protein, ur ql Negative Negative [facility] (JAMILA) Glucose, ur ql Negative Negative [facility] (JAMILA) Ketones, ur Negative Negative [facility] (JAMILA) Bilirubin, ur Negative Negative [facility] (JAMILA) Blood, ur Negative Negative [facility] (JAMILA) Urobilinogen, ur <2.0 <2.0 mg/dL [facility] (JAMILA) Nitrite, ur Negative Negative [facility] (JAMILA) Leukocyte esterase, ur 1+(A) Negative [facility] (JAMILA) UA reflex comment Reflex to microscopic UA will be performed. [facility] (JAMILA) Urine 07/06/2025 6:37 PM CDT 07/06/2025 7:04 PM CDT us Fe Gardner NP LAB MICROBIOLOGY - GENERAL OR DERABLES Final Result Performing Organization Address City/[facility]/ZIP Co de Phone Number [facility] ESPINOZA (ANCHORAGE) 1 [facility] [place] [address] * (ABNORMAL) hCG, urine, qualitative (07/06/2025 6:37 PM CDT) HCG, ur Positive(A) Negative Urine 07/06/2025 6:37 PM CDT 07/06/2025 7:04 PM CDT Fe Gardner F[employer]EL CELL [employer]SEMBLER LAB URINE ORDERABLES Final Re sult Performing Organization Address [facility] de Phone Number [facility] ESPINOZA (ANCHORAGE) [address] [place] [address] * (ABNORMAL) Urinalysis, microscopic only (07/06/2025 6:37 PM CDT) WBC, ur 0-5 0 - 5 /HPF RBC, ur 0-2 0 - 2 /HPF [facility] (JAMILA) Epithelial cells, squamous, ur 11-20(A) 0 - 5 /HPF [facility] (JAMILA) Bacteria, ur 2+(A) [facility] (JAMILA) Mucous, ur Present(A) [facility] (ANCHORAGE) Culture Reflex Comment Reflex conditions for urine culture (WBC >10) not met. [facility] (JAMILA) Urine 07/06/2025 6:37 PM CDT 07/06/2025 7:04 PM CDT us Fe Gardner NP LAB URINE ORDERABLES Final Re sult Performing Organization Address [facility] Co de Phone Number [facility] ESPINOZA (ANCHORAGE) [address] [place] [address] * (ABNORMAL) POCT urinalysis (Clinitek) (06/23/2025 6:33 PM CDT) Color, ur, POC Yellow Yellow Clarity, UA, POC Clear Clear [facility] Glucose, ur, POC Negative Negative [facility] Bilirubin, ur, POC Negative Negative [facility] Ketones, ur, POC Negative Negative [facility] Specific gravity, ur, POC 1.025 1.010 - 1.025 [facility] Blood, ur, POC Trace(A) Negative [facility] pH, ur, POC 6.0 [facility] Comment: Interpretive Data Urine pH is affected by diet, medications, systemic acid-base disturbances, and renal tubular function. pH may affect urinary stone formation. For example, urine pH below 6.0 may help reduce the tendency for calcium phosphate stones and pH greater than 6.0 may reduce the tendency for uric acid stone formation. Source: [facility] [employer]. Last Revised Date: 12-07-2017 Protein, ur, POC Negative Negative [facility] Urobilinogen, ur, POC 0.2 mg/dL mg/dL [facility] Nitrites, ur, POC Negative Negative [facility] Leukocyte esterase, ur, POC Negative Negative [facility] Urine 06/23/2025 6:33 PM CDT 06/23/2025 6:33 PM CDT us Mary Lou Guido MD LAB POCT ORDERABLES - MICKI CE Final Result [facility] Department [place] [address] * POCT hemoglobin (06/23/2025 5:55 PM CDT) Hemoglobin POC 12.2 11.9 - 15.5 g/dL Capillary blood 06/23/2025 5 :55 PM CDT us Aparna Gonzales NP POINT OF CARE TEST ORDERABLES Final Result * POCT glucose (06/23/2025 5:54 PM CDT) Glucose, POC 89 70 - 199 mg/dL Blood 06/23/2025 5:54 PM CDT 06/23/2025 5:54 PM CDT Mary Lou Guido MD LAB POCT ORDERABLES - MICKI CE Final Result Performing Organization Address [facility] Co de Phone Number [facility] Department [place] [address] * (ABNORMAL) POCT hCG, urine (06/23/2025 4:35 PM CDT) HCG, ur, POC Positive(A) Negative Lot Number ICON 20 QC Backgroud Clear Acceptable QC Control Line Acceptable Urine 06/23/2025 4:35 PM CDT Aparna Gonzales NP POINT OF CARE TEST ORDERABLES Final Result * Hepatitis C antibody Blood (06/21/2024 9:08 AM CDT) Pathologist [facility] Hep C Ab Nonreactive Nonreactive Comment:Antibodies to HCV no t detected. Does NOT exclude the possibility of recent exposure to HCV. Current interpretive data was last revised on 22 Blood 06/21/2024 9:08 AM CDT 06/21/2024 10:21 AM CDT Tiara Singh NP LAB MICROBIOLOGY - GENERAL ORDERABLES Final Result Performing Organization Address [facility] Co de Phone Number [facility] Department [place] [address] * Pap Only (Cytology Component) (02/22/2024 8:43 AM CDT) Thin prep (Pap test) 02/22/2024 8:43 AM CDT 02/22/2024 11:35 AM CDT Narrative PATHOLOGY [facility] - 02/28/2024 12:33 PM CDT EPIC results best viewed via link to PDF [facility] [place] [address] Note to Patients: This report may contain a detailed description of human tissue sent by a health care provider to the laboratory for pathologic evaluation. The content of this report is essential for diagnosis and may provide important critical findings. This information may be unfamiliar to patients to review without a medical professional present. It is advised that the patient review this report in the presence of a health care provider who can answer questions and explain the details. CYTOPATHOLOGY REPORT FINAL Patient Name: ERUM POP Gender: F : 2000 (Age: 23) Address: [address] [place] [id number] Hospital #: [id number] Service: UNKNOWN Location: Patient Type: [facility] SPECIMEN Taken: 02/22/2024 Received: 02/22/2024 Accessioned: 02/22/2024 Reported: 02/28/2024 Physician(s): Rusty Davis RN FINAL INTERPRETATION SOURCE OF SPECIMEN Liquid based Thin Prep pap: STATEMENT OF ADEQUACY - Satisfactory for evaluation - Endocervical cells/transformation zone sample absent GENERAL CATEGORIZATION: - Negative for squamous intraepithelial lesion or malignancy /02/28/2024 12:33 MERLIN Alonso(ASCP) Report Electronically Reviewed and Signed Out By MERLIN Alonso(ASCP) 02/28/2024 12:33:55 Cervicovaginal Cytology (Pap Test) Disclaimer: The Pap test is a screening test used to detect cervical cancer and its precursors; it is not a diagnostic procedure. False negative and false positive results do occur. Pap test results should be interpreted in the context of pertinent clinical information and biopsy results as indicated. [facility] Clinical Laboratory Improvement Amendments (CLIA) mandate that cytologic and histologic results be correlated for laboratory machined parts quality inspector & improvement standards. FOR ALL HIGH-GRADE CASES we request submission of follow-up histological material and/or reports that have not been previously provided so that we may fulfill said required standards. Gross Description A. Liquid based Thin Prep pap: Cervical/vaginal - Screening ThinPrep Clinical Diagnosis and History Last Menstrual Period: 02/05 Menstrual History: Regular Cycles The patient is a 23 year old woman with first pap. Report Images and scanned documents, if included only viewable in PDF version The performance characteristics of some immunohistochemical stains, in-situ hybridization and fluorescence in-situ hybridization tests and immunophenotyping by flow cytometry cited in this report (if any) were determined by the Surgical Pathology Department at [facility] as part of an ongoing quality control engineering technician program and in compliance with federally mandated regulations drawn from the Clinical Laboratory Improvement Act of 1988 (CLIA '88). Some of these tests rely on the use of analyte specific reagents and are subject to specific labeling requirements by the [place] Food and Drug Administration. Such diagnostic tests may only be performed in a facility that is certified by the Department of Health and Human Services as a high complexity laboratory under CLIA '88. The FDA has determined that such clearance or approval is not necessary. This test is used for clinical purposes. It should not be regarded as investigational or for research. Nevertheless, federal rules concerning the medical use of analyte specific reagents require that the following disclaimer be attached to the report: This test was developed and its performance characteristics determined by the Surgical Pathology Department of [facility]. It has not been cleared or approved by the [place]. [place]. Food and Drug Administration. Rusty Davis NP LAB CYTOLOGY ORDERABLES Brinda pierce Result PATHOLOGY [facility] [address] [place], [place] [phone] from Last 3 Months or Most Recently Relevant to Health Maintenance Insurance [facility] Advance Directives For more information, please contact: [phone] * Full Code (Latest Code Status on File) Date Activated Date Inactivated Comments 02/10/2025 3:37 PM 02/13/2025 6:45 PM * Full Code Date Activated Date Inactivated Comments 02/10/2025 8:41 AM 02/10/2025 3:37 PM Full CPR in case of cardiopulmonary arrest * Full Code Date Activated Date Inactivated Comments 11/09/2024 9:52 PM 11/10/2024 3:48 PM * Full Code Date Activated Date Inactivated Comments 11/04/2022 1:53 PM 11/08/2022 6:56 PM * Full Code Date Activated Date Inactivated Comments 11/02/2022 4:27 PM 11/04/2022 1:53 PM Full CPR in case of cardiopulmonary arrest Care Teams [employer] Relationship Specialty Start Date End Date Donnie Tejeda MD [address] [place] [address] PCP - General Family Medicine 12/06/24
== END 2025-09-15 18:14 | disposition home or self-care (01) ==
LOC: ANHOBOP 17:51 → ANHOBPP 17:51
PROVIDERS: Visit Provider Obstetrics & Gynecology
DX: O9A.212 Injury, poisoning and certain other consequences of external causes complicating pregnancy, second trimester (principal)
CPT/HCPCS: 99199